=== PATIENT | male | born 1990 | race Caucasian/White ===

== ENCOUNTER 2019-06-11 22:43 | Emergency (ER) | payer MEDICAID ==
[~2019-06-11] VITALS: Ht 175.3 cm; Wt 72.6 kg
[2019-06-11 23:09] VITALS: Ht 175.3 cm; Wt 72.6 kg
[2019-06-12 03:58] VITALS: BP 118/74
== END 2019-06-12 03:58 | disposition home or self-care (01) ==
LOC: ED 22:43
DX: B34.9 Viral infection, unspecified (principal)
CPT/HCPCS: 87804; J1885; J2765; Q0162

== ENCOUNTER 2019-06-12 12:39 | Emergency (ER) | payer MEDICAID ==
[~2019-06-12] VITALS: Ht 175.3 cm; Wt 68.5 kg
[2019-06-12 12:54] VITALS: Ht 175.3 cm; Wt 68.5 kg
[2019-06-12 17:05] VITALS: BP 133/78
== END 2019-06-12 17:05 | disposition home or self-care (01) ==
LOC: ED 12:39
DX: R19.7 Diarrhea, unspecified (principal); R03.0 Elevated blood-pressure reading, without diagnosis of hypertension; R09.81 Nasal congestion

== ENCOUNTER 2019-06-12 18:15 | Emergency (ER) | payer MEDICAID | END 2019-06-12 19:18 | disposition left against medical advice (07) | LOC: ED 18:15 | DX: Z53.21 Procedure and treatment not carried out due to patient leaving prior to being seen by health care provider (principal) ==

== ENCOUNTER 2019-06-13 01:30 | Emergency (ER) | payer MEDICAID ==
[~2019-06-13] VITALS: Ht 175.3 cm; Wt 68.5 kg
[2019-06-13 01:42] VITALS: Ht 175.3 cm; Wt 68.5 kg
[2019-06-13 02:44] LABS: BASOPHIL % 0.4 % (0-2); PLATELET COUNT 202 x10^3mcL (130-400); RED CELL DISTRIBUTION WIDTH 14.1 % (11.5-14.5)
[2019-06-13 03:16] LABS: CALCIUM 8.2 mg/dL (8.5-10.1); CHLORIDE SERUM 101 mmol/L (98-107); CREATININE SERUM 0.9 mg/dL (0.7-1.3); GFR1 > 60 mL/min; GLUCOSE SERUM 181 mg/dL (74-106); POTASSIUM SERUM 3.3 mmol/L (3.5-5.1); SODIUM SERUM 134 mmol/L (136-145)
[2019-06-13 03:21] LABS: ALKALINE PHOSPHATASE 64 U/L (46-116); ALT/SGPT 113 U/L (16-63); AST/SGOT 69 U/L (15-37); BILIRUBIN TOTAL 0.28 mg/dL (0.20-1.00); LIPASE 90 IU/L (73-393); TOTAL PROTEIN, SERUM 7.5 g/dL (6.4-8.2)
[2019-06-13 03:23] LABS: ALBUMIN 3.2 g/dL (3.4-5.0)
[2019-06-13 06:29] VITALS: BP 114/70
== END 2019-06-13 06:29 | disposition home or self-care (01) ==
LOC: ED 01:30
PROVIDERS: Emergency Medicine
DX: E87.6 Hypokalemia (principal); R10.9 Unspecified abdominal pain; R19.7 Diarrhea, unspecified
CPT/HCPCS: 87046; 87046-59; J2405; J7030

== ENCOUNTER 2019-06-13 07:44 | Inpatient (IN) | payer MEDICAID ==
[~2019-06-13] VITALS: Ht 175.3 cm; Wt 68.5 kg
[2019-06-13 07:55] VITALS: Ht 175.3 cm; Wt 68.5 kg
[2019-06-13 09:17] LABS: microscopic required? NO
[2019-06-13 09:25] LABS: BASOPHIL % 0.4 % (0-2); PLATELET COUNT 218 x10^3mcL (130-400); RED CELL DISTRIBUTION WIDTH 13.8 % (11.5-14.5)
[2019-06-13 09:27] LABS: urine erythrocyte NEGATIVE (NEGATIVE)
[2019-06-13 09:48] LABS: CALCIUM 8.4 mg/dL (8.5-10.1); CARBON DIOXIDE 27.4 mmol/L (21-32); CHLORIDE SERUM 103 mmol/L (98-107); GFR1 > 60 mL/min; GLUCOSE SERUM 107 mg/dL (74-106); POTASSIUM SERUM 3.7 mmol/L (3.5-5.1); SODIUM SERUM 138 mmol/L (136-145)
[2019-06-13 10:02] LABS: ALKALINE PHOSPHATASE 60 U/L (46-116); ALT/SGPT 93 U/L (16-63); AST/SGOT 56 U/L (15-37); BILIRUBIN TOTAL 0.2 mg/dL (0.20-1.00); LIPASE 114 IU/L (73-393); T4(THYROXINE) 8.7 ug/dL (4.7-13.3); TOTAL PROTEIN, SERUM 7.1 g/dL (6.4-8.2)
[2019-06-13 10:06] LABS: AMPHETAMINE QUAL UR NONE DETECTED (See below)
[2019-06-13 10:09] LABS: CHOLESTEROL 98 mg/dL (<200)
[2019-06-13 14:19] VITALS: BP 125/65
[2019-06-13 17:12] VITALS: BP 123/70
[2019-06-13 21:11] VITALS: BP 126/61
[2019-06-14 06:02] VITALS: BP 130/67
[2019-06-14 06:19] LABS: BASOPHIL % 0.1 % (0-2); PLATELET COUNT 184 x10^3mcL (130-400); RED CELL DISTRIBUTION WIDTH 13.9 % (11.5-14.5)
[2019-06-14 06:40] LABS: CALCIUM 7.8 mg/dL (8.5-10.1); CARBON DIOXIDE 26.4 mmol/L (21-32); CHLORIDE SERUM 109 mmol/L (98-107); CREATININE SERUM 0.7 mg/dL (0.7-1.3); GFR1 > 60 mL/min; GLUCOSE SERUM 92 mg/dL (74-106); MAGNESIUM 1.4 mg/dL (1.8-2.4); POTASSIUM SERUM 3.4 mmol/L (3.5-5.1); SODIUM SERUM 142 mmol/L (136-145)
[2019-06-14 09:18] VITALS: BP 113/63
[2019-06-14 17:35] VITALS: BP 129/71
[2019-06-14 21:07] VITALS: BP 128/66
[2019-06-15 05:36] VITALS: BP 126/60
[2019-06-15 06:31] LABS: BASOPHIL % 0.3 % (0-2); PLATELET COUNT 207 x10^3mcL (130-400); RED CELL DISTRIBUTION WIDTH 14.1 % (11.5-14.5)
[2019-06-15 06:59] LABS: CALCIUM 8.2 mg/dL (8.5-10.1); CARBON DIOXIDE 27.8 mmol/L (21-32); CHLORIDE SERUM 106 mmol/L (98-107); CREATININE SERUM 0.7 mg/dL (0.7-1.3); GFR1 > 60 mL/min; GLUCOSE SERUM 83 mg/dL (74-106); POTASSIUM SERUM 3.6 mmol/L (3.5-5.1); SODIUM SERUM 141 mmol/L (136-145)
[2019-06-15 09:29] VITALS: BP 127/78
[2019-06-15 10:32] VITALS: BP 127/78
== END 2019-06-15 17:20 | disposition home or self-care (01) | DRG 249 ==
LOC: ED 07:44 → MU 11:51
PROVIDERS: Emergency Medicine; General Practice; ADMIT Internal Medicine
DX: K52.9 Noninfective gastroenteritis and colitis, unspecified (principal); E83.51 Hypocalcemia; Z59.0 Homelessness
CPT/HCPCS: 87046; 87046-59; C9113; G0378; J3475; J3490; J7030; J7040